=== PATIENT | female | born 1965 | race Caucasian/White ===

== ENCOUNTER 2017-01-05 22:56 | Emergency (ER) | payer BC ==
[2017-01-05] MEDS: Sodium Chloride 0.9% 1,000 ML IV SCH (23:54)
[2017-01-06] MEDS ORDERED: LORazepam 2 MG/ML MDV IVPUSH ONE (00:02)
[2017-01-06] MEDS ORDERED: Ondansetron 4 MG/2 ML SDV IVPUSH ONE (00:03)
[2017-01-06] MEDS ORDERED: Estradiol 0.5 MG Tab ONE (00:12)
[2017-01-06] MEDS ORDERED: Estradiol 0.5 MG Tab PO ONE (00:18)
--- NOTE | 2017-01-06 00:56 | EDM.PDOC ---
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 heavy flow changing pads every 2- 4 hours, this evening had increased flow, passing large bright red clots about golf ball size. feeling weak and dizzy. reports had tubal ligation with last child. no chronic health conditions are noted no medication except for multi-vitamin last clinic exam one and half years ago at [facility] Duration: Day(s): (2), Getting Worse, Heavy Quality: Reports: Pressure Severity: Moderate Improves with: Reports: None Worsens with: Reports: None Context: Reports: Other (menopausal bleeding) Associated Symptoms: Reports: Fever/Chills (chills no fever), Weakness Abdominal Pain Score (Numeric/FACES): 4 - Related Data Allergies Allergy/AdvReac Type Severity Reaction Status Date / Time No Known Allergies Allergy Verified 01/05/17 23:07 Home Meds: Home Meds NK [No Known Home Meds] 01/05/17 [History] Past Medical History HEENT History: Reports: Impaired Vision Cardiovascular History: Reports: Arrhythmia Genitourinary History: Reports: UTI, Recurrent 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 3 children ages 15 yrs, 21 yrs, 23 yrs.) ED ROS GENERAL - Review of Systems Review Of Systems: See Below Constitutional: Reports: Chills HEENT: Reports: No Symptoms Respiratory: Reports: No Symptoms Cardiovascular: Reports: No Symptoms Endocrine: Reports: No Symptoms GI/Abdominal: Reports: No Symptoms : Reports: Irregular Menses, Other (heavy menses) Musculoskeletal: Reports: No Symptoms Skin: Reports: No Symptoms Neurological: Reports: Dizziness Psychiatric: Reports: No Symptoms Hematologic/Lymphatic: Reports: No Symptoms Immunologic: Reports: No Symptoms ED EXAM, GENERAL - Physical Exam Exam: See Below Exam Limited By: No Limitations General Appearance: Alert, Anxious, Mild Distress Eye Exam: Bilateral Eye: Normal Inspection Ears: Normal External Exam Nose: Normal Inspection Head: Atraumatic, Normocephalic Neck: Normal Inspection, Supple, Non-Tender, Full Range of Motion Respiratory/Chest: No Respiratory Distress, Lungs Clear, Normal Breath Sounds, No Accessory Muscle Use, Chest Non-Tender Cardiovascular: Regular Rate, Rhythm, No Edema, No Murmur GI/Abdominal: Normal Bowel Sounds, Soft, Non-Tender (Female) Exam: Enlarged Uterus (at 16 cm., firm, large, non-tender), Vaginal Bleeding (copious amount of dark red blood in vaginal vault in from cx os.) Rectal (Female) Exam: Normal Exam Back Exam: Normal Inspection, Full Range of Motion, NT Extremities: Normal Inspection, Normal Range of Motion, Non-Tender, Normal Capillary Refill, No Pedal Edema Neurological: Alert, Oriented, CN II-XII Intact, Normal Cognition, Normal Gait, Normal Reflexes, No Motor/Sensory Deficits Psychiatric: Anxious, Tearful Skin Exam: Warm, Dry, Intact, Normal Color, No Rash Lymphatic: No Adenopathy Course - Vital Signs Last Recorded V/S: Last Vital Signs Temp 36.8 C 01/05/17 23:09 Pulse 65 01/06/17 01:00 Resp 22 H 01/05/17 23:48 BP 114/63 01/06/17 01:00 Pulse Ox 95 01/06/17 01:00 - Orders/Labs/Meds Orders: Active Orders 24 hr Category Date Time Status UA W/MICROSCOPIC [URIN] Urgent Lab 01/05/17 23:23 Uncollected Sodium Chloride 0.9% [Normal Saline] 1,000 ml Med 01/05/17 23:30 Active IV ASDIRECTED Sodium Chloride 0.9% [Normal Saline] 1,000 ml Med 01/06/17 01:15 Active IV ASDIRECTED Medication Orders Sodium Chloride (Normal Saline) 1,000 mls @ 999 mls/hr IV ASDIRECTED MIKEL Last Admin: 01/06/17 01:09 Dose: 999 mls/hr Infusion: 01/06/17 00:55 Dose: 999 mls/hr Admin: 01/05/17 23:54 Dose: 999 mls/hr Sodium Chloride (Normal Saline) 1,000 mls @ 999 mls/hr IV ASDIRECTED [facility] Labs: Laboratory Tests 01/05/17 01/05/17 01/05/17 Range/Units 23:22 23:34 23:34 WBC 10.7 (4.5-11.0) K/uL RBC 4.49 (3.30-5.50) M/uL Hgb 13.1 (12.0-15.0) g/dL Hct 39.1 (36.0-48.0) % MCV 87 (80-98) fL MCH 29 (27-31) pg MCHC 34 (32-36) % Plt Count 292 (150-400) K/uL Neut % (Auto) 68 H (36-66) % Lymph % (Auto) 18 L (24-44) % [place] % (Auto) 12 H (2-6) % Eos % (Auto) 2 (2-4) % Baso % (Auto) 1 (0-1) % Sodium 140 (140-148) mmol/L Potassium 3.5 L (3.6-5.2) mmol/L Chloride 104 (100-108) mmol/L Carbon Dioxide 25 (21-32) mmol/L Anion Gap 14.5 H (5.0-14.0) mmol/L BUN 10 (7-18) mg/dL Creatinine 0.8 (0.6-1.0) mg/dL Est Cr Clr Drug Dosing 84.99 mL/min Estimated GFR (MDRD) > 60 (>60) Glucose 126 H (74-106) mg/dL Calcium 8.9 (8.5-10.1) mg/dL Total Bilirubin 0.5 (0.2-1.0) mg/dL AST 13 L (15-37) U/L ALT 17 (12-78) U/L Alkaline Phosphatase 62 (46-116) U/L Total Protein 7.3 (6.4-8.2) g/dL Albumin 3.7 (3.4-5.0) g/dL Globulin 3.6 H (2.3-3.5) g/dL Albumin/Globulin Ratio 1.0 L (1.2-2.2) TSH, Ultra Sensitive 2.363 (0.358-3.740) uIU/mL HCG, Qual 01/05/17 Range/Units 23:42 WBC (4.5-11.0) K/uL RBC (3.30-5.50) M/uL Hgb (12.0-15.0) g/dL Hct (36.0-48.0) % MCV (80-98) fL MCH (27-31) pg MCHC (32-36) % Plt Count (150-400) K/uL Neut % (Auto) (36-66) % Lymph % (Auto) (24-44) % [place] % (Auto) (2-6) % Eos % (Auto) (2-4) % Baso % (Auto) (0-1) % Sodium (140-148) mmol/L Potassium (3.6-5.2) mmol/L Chloride (100-108) mmol/L Carbon Dioxide (21-32) mmol/L Anion Gap (5.0-14.0) mmol/L BUN (7-18) mg/dL Creatinine (0.6-1.0) mg/dL Est Cr Clr Drug Dosing mL/min Estimated GFR (MDRD) (>60) Glucose (74-106) mg/dL Calcium (8.5-10.1) mg/dL Total Bilirubin (0.2-1.0) mg/dL AST (15-37) U/L ALT (12-78) U/L Alkaline Phosphatase (46-116) U/L Total Protein (6.4-8.2) g/dL Albumin (3.4-5.0) g/dL Globulin (2.3-3.5) g/dL Albumin/Globulin Ratio (1.2-2.2) TSH, Ultra Sensitive (0.358-3.740) uIU/mL HCG, Qual Negative Meds: Medications Generic Name Dose Route Start Last Admin Trade Name Freq PRN Reason Stop Dose Admin Sodium Chloride 1,000 mls @ 999 mls/hr 01/05/17 23:30 01/06/17 01:09 Normal Saline IV 999 mls/hr ASDIRECTED MIKEL Administration Sodium Chloride 1,000 mls @ 999 mls/hr 01/06/17 01:15 Normal Saline IV ASDIRECTED MIKEL Discontinued Medications Generic Name Dose Route Start Last Admin Trade Name Laura PRN Reason Stop Dose Admin Estradiol Confirm 01/06/17 00:12 01/06/17 00:28 Estradiol Administered 01/06/17 00:13 Not Given Dose 2 mg .ROUTE .STK-MED ONE Estradiol 2 mg 01/06/17 00:18 01/06/17 00:28 Estradiol PO 01/06/17 00:19 2 mg ONETIME ONE Administration Estrogens Conjugated 2.5 mg 01/06/17 00:01 01/06/17 00:28 Premarin PO 01/06/17 00:02 Not Given ONETIME ONE Lorazepam 0.5 mg 01/06/17 00:02 01/06/17 00:16 Ativan IVPUSH 01/06/17 00:03 0.5 mg ONETIME ONE Administration Medroxyprogesterone Acetate 10 mg 01/06/17 00:00 01/06/17 00:16 Provera PO 01/06/17 00:01 10 mg ONETIME ONE Administration Ondansetron HCl 4 mg 01/06/17 00:03 01/06/17 00:16 Zofran IVPUSH 01/06/17 00:04 4 mg ONETIME ONE Administration - Re-Assessments/Exams Free Text/Narrative Re-Assessment/Exam: 01/06/17 01:01 Labs; CBC, CMP, TSH, UA:all with normal limits. hgb 13.1 meds; normal saline 1 liter x 2, IV Zofran 4mg , due to vaginal bleeding consulted with [facility], Dr. 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 -advise patient if she has any changes, increased bleeding, worsen light headed , or dizziness, go to [facility] for further care. and Mrs. Glass agree with plan of care. 01/06/17 01:10 given Provera 10 mg po and estrogen 2.0 mg 01/06/17 01:50 blood pressure 11/54 p; 75 pad check, no further bleeding discussed plan of care, will discharge home with script written Mrs. Glass and agree with plan of care. Departure - Departure Time of Disposition: 01:51 Disposition: Home, Self-Care 01 Condition: Good Clinical Impression: Dysfunctional uterine bleeding - Discharge Information Referrals: PCP,None [Primary Care Provider] - Forms: ED Department Discharge Care Plan Goals: dysfunction uterine bleeding -take medication as prescribed, (given first dose in ER) -rest, push fluids, avoid any lifting. 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 -go directly to [facility] if has any worsen of symptoms or any concerns. - Problem List & Annotations (1) Dysfunctional uterine bleeding SNOMED Code(s): 11759491 Code(s): N93.8 - OTHER SPECIFIED ABNORMAL UTERINE AND VAGINAL BLEEDING Status: Acute Priority: High Current Visit: Yes - Problem List Review Problem List Initiated/Reviewed/Updated: Yes - My Orders Last 24 Hours: My Active Orders 01/05/17 23:23 UA W/MICROSCOPIC [URIN] Urgent 01/05/17 23:30 Sodium Chloride 0.9% [Normal Saline] 1,000 ml IV ASDIRECTED 01/06/17 01:15 Sodium Chloride 0.9% [Normal Saline] 1,000 ml IV ASDIRECTED - Assessment/Plan Last 24 Hours: My Active Orders 01/05/17 23:23 UA W/MICROSCOPIC [URIN] Urgent 01/05/17 23:30 Sodium Chloride 0.9% [Normal Saline] 1,000 ml IV ASDIRECTED 01/06/17 01:15 Sodium Chloride 0.9% [Normal Saline] 1,000 ml IV ASDIRECTED Plan: dysfunction uterine bleeding -take medication as prescribed, (given first dose in ER) -rest, push fluids, avoid any lifting. 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 -go directly to [facility] if has any worsen of symptoms or any concerns.
[2017-01-06] MEDS: Sodium Chloride 0.9% 1,000 ML IV SCH (01:09)
[2017-01-06] MEDS ORDERED: Sodium Chloride 0.9% 1,000 ML IV SCH (01:15)
== END 2017-01-06 02:24 | disposition home or self-care (01) ==
LOC: JP.ED 22:56
DX: N93.8 Other specified abnormal uterine and vaginal bleeding (principal)
CPT/HCPCS: 36415; 80053; 84443; 84703; 85025; 96361; 96374; 96375; 99284; A9270; J2060; J2405; J7040

== ENCOUNTER 2021-02-17 11:28 | Emergency (ER) | payer BC ==
[2021-02-17] MEDS ORDERED: Potassium Chloride 20 MEQ in Premix Bag 1 BAG IV ONE (13:17)
[2021-02-17] MEDS ORDERED: Potassium Chloride 20 MEQ Tab.ER PO ONE (13:18)
[2021-02-17] MEDS ORDERED: Sodium Chloride 0.9% 10 ML SDV FLUSH ONE (14:01)
[2021-02-17] MEDS ORDERED: Iopamidol 755 Mg/ML 100 ML Bottle IV ONE (14:07)
[2021-02-17] MEDS ORDERED: Iopamidol 755 Mg/ML 100 ML Bottle IV SCH (14:15)
[2021-02-17] MEDS ORDERED: Sodium Chloride 0.9% 100 ML IV SCH (14:15)
[2021-02-17] MEDS ORDERED: Sodium Chloride 0.9% 90 ML IV SCH (14:15)
[2021-02-17] MEDS ORDERED: Potassium Chloride 20 MEQ, Lidocaine 1% 2 ML in Sodium Chloride 0.9% 100 ML IV ONE (15:15)
== END 2021-02-17 18:12 | disposition home or self-care (01) ==
LOC: JP.ED 11:28
DX: J12.9 Viral pneumonia, unspecified (principal); E86.0 Dehydration; E87.6 Hypokalemia
CPT/HCPCS: 36415; 71045; 71045-26; 71275; 71275-26; 80053; 84145; 85025; 85379; 86140; 96365; 96366; 99284; 99285-25; A9270-GY; J2001; J3480; Q9967